=== PATIENT | female | born 1930 | race Caucasian/White ===

== ENCOUNTER 2016-09-21 17:12 | Emergency (ER) | payer OTHER ==
[2016-09-21 17:26] VITALS: TEMP 98.9; BMI 21.1
--- NOTE | 2016-09-21 17:31 | PDOC ---
History of Present Illness - General History Source: Patient Exam Limitations: No Limitations - History of Present Illness Initial Comments: 09/21/16 18:20 The patient is a 82 year old female, poor historian, with a significant past medical history of HTN and osteoporosis, who presents to the emergency department with AMS and headache. The patient was at a Urgent care for a routine PROSTHETIC DENTIST exam, when she was found to be going in and out of it and was unable answer questions. states, the patient was tremulous in the exam room however denied witnessing any seizure activity. The time of onset is unclear. When asked, the patient states she has been having a headache since everything began. Patient presents to the ED with her for further evaluation. She denies chest pain, headache or dizziness. She denies fever, chills, nausea, vomit, diarrhea or constipation. She denies dysuria, frequency, urgency or hematuria. Allergies: NKA Past surgical history: None Social history: None PCP: -- <Ivelisse Hodges - Last Filed: 09/21/16 19:01> <Gely Reid - Last Filed: 09/24/16 11:47> - General Chief Complaint: Altered Mental Status Stated Complaint: SYNCOPE Time Seen by Provider: 09/21/16 17:22 Past History <Ivelisse Hodges - Last Filed: 09/21/16 19:01> - Past Medical History HTN: Yes - Psycho/Social/Smoking Cessation Hx Anxiety: No Suicidal Ideation: No Smoking History: Never smoked Have you smoked in the past 12 months: No Information on smoking cessation initiated: No Hx Alcohol Use: No Drug/Substance Use Hx: No Substance Use Type: None <Gely Reid - Last Filed: 09/24/16 11:47> - Past Medical History Allergies/Adverse Reactions: Allergies Allergy/AdvReac Type Severity Reaction Status Date / Time No Known Allergies Allergy Verified 09/21/16 17:20 Home Medications: Ambulatory Orders Atorvastatin Ca [Lipitor] 20 mg PO HS 09/21/16 Esomeprazole Magnesium [Nexium 24Hr] 20 mg PO DAILY 09/21/16 Estradiol [Estrace] 0.1 mg PO WEEKLY 09/21/16 Ibandronate Sodium [Boniva] 150 mg PO MONTHLY 09/21/16 Review of Systems - Review of Systems Able to Perform ROS?: Yes Comments:: 09/21/16 18:21 GENERAL/CONSTITUTIONAL: No fever or chills. No weakness. HEAD, EYES, EARS, NOSE AND THROAT: No change in vision. No ear pain or discharge. No sore throat. CARDIOVASCULAR: No chest pain or shortness of breath. RESPIRATORY: No cough, wheezing, or hemoptysis. GASTROINTESTINAL: No nausea, vomiting, diarrhea or constipation. GENITOURINARY: No dysuria, frequency, or change in urination. MUSCULOSKELETAL: No joint or muscle swelling or pain. No neck or back pain. SKIN: No rash NEUROLOGIC:+ headache. No vertigo, loss of consciousness, or change in strength/ sensation. ENDOCRINE: No increased thirst. No abnormal weight change. HEMATOLOGIC/LYMPHATIC: No anemia, easy bleeding, or history of blood clots. ALLERGIC/IMMUNOLOGIC: No hives or skin allergy. <Ivelisse Hodges - Last Filed: 09/21/16 19:01> *Physical Exam - Vital Signs Last Vital Signs Temp Pulse Resp BP Pulse Ox 98.9 F 78 20 141/73 95 09/21/16 17:21 09/21/16 17:21 09/21/16 17:21 09/21/16 17:21 09/21/16 17:21 <Ivelisse Hodges - Last Filed: 09/21/16 19:01> - Vital Signs Last Vital Signs Temp Pulse Resp BP Pulse Ox 98.9 F 78 20 141/73 95 09/21/16 17:21 09/21/16 17:21 09/21/16 17:21 09/21/16 17:21 09/21/16 17:21 - Physical Exam Comments: GENERAL: Awake, alert, in no acute distress. Oriented to person and place, but appears confused, delirious. Intermittently falls asleep. HEAD: No signs of trauma EYES: PERRLA, EOMI, sclera anicteric, conjunctiva clear ENT: Auricles normal inspection, hearing grossly normal, nares patent, oropharynx clear without exudates. Moist mucosa NECK: Normal ROM, supple, no lymphadenopathy, JVD, or masses LUNGS: Breath sounds equal, clear to auscultation bilaterally. No wheezes, and no crackles HEART: Regular rate and rhythm, normal S1 and S2, no murmurs, rubs or gallops ABDOMEN: Soft, nontender, normoactive bowel sounds. No guarding, no rebound. No masses EXTREMITIES: Normal range of motion, no edema. No clubbing or cyanosis. No cords, erythema, or tenderness NEUROLOGICAL: Cranial nerves II through XII grossly intact. Normal speech, normal gait. Moving all extremities. SKIN: Warm, Dry, normal turgor, no rashes or lesions noted. <Gely Reid - Last Filed: 09/24/16 11:47> Heart Score/ECG Review - ECG Impressions Comment:: EKG read 17:27- NSR 79 bpm, no acute ST/T changes <Gely Reid - Last Filed: 09/24/16 11:47> ED Treatment Course - LABORATORY CBC & Chemistry Diagram: 09/21/16 17:51 09/21/16 17:51 <Ivelisse Hodges - Last Filed: 09/21/16 19:01> - LABORATORY CBC & Chemistry Diagram: 09/21/16 17:51 09/21/16 17:51 <Gely Reid - Last Filed: 09/24/16 11:47> Medical Decision Making - Medical Decision Making 09/21/16 19:[address] Official report pending. <Ivelisse Hodges - Last Filed: 09/21/16 19:01> - Medical Decision Making Received a call from Dr. Campuzano, who saw patient in her office as the change in mental status happened. Patient was there for routine f/u, became altered in the waiting room afterwards. She had not had any procedures, there was also no trauma. Etiology of the change in mental status is still unclear. No acute findings on CTH. Still awaiting the remainder of her workup for admission. <Gely Reid - Last Filed: 09/24/16 11:47> *DC/Admit/Observation/Transfer - Attestations Scribe Attestion: 09/21/16 18:21 Documentation prepared by Ivelisse Hodges, acting as medical technologist chemistry for Gely Reid MD <Ivelisse Hodges - Last Filed: 09/21/16 19:01> <Gely Reid - Last Filed: 09/24/16 11:47> Diagnosis at time of Disposition: Confusion Change in mental status Qualifiers: Altered mental status type: unspecified Qualified Code(s): R41.82 - Altered mental status, unspecified - Discharge Dispostion Disposition: HOME - Referrals Referrals: Chadd Oneil MD [Staff Physician] - - Patient Instructions Printed Discharge Instructions: DI for Altered Mental Status Additional Instructions: Please follow up with your doctor and get a referral to a neurologist or go the name referred to you here in the department
[2016-09-21 18:26] LABS: MCH 25.1 pg (25.7-33.7); MCHC 31.5 g/dl (32.0-36.0); MEAN CELL VOLUME 79.7 fl (80-96); MEAN PLT VOLUME 10.3 fl (7.5-11.1); PLATELET COUNT 94 K/MM3 (134-434); RDW 21.6 % (11.6-15.6); WHITE BLOOD COUNT 5.4 K/mm3 (4.0-10.0)
[2016-09-21 18:59] LABS: ALBUMIN 3.9 g/dl (3.4-5.0); ANION GAP 10 (8-16); CALCIUM 9.4 mg/dL (8.5-10.1); CO2 25 mmol/L (21-32); CREATININE 0.5 mg/dL (0.55-1.02); GLUCOSE,RANDOM 93 mg/dL (74-106); PLATELET ESTIMATE DECREASED (NORMAL); SGOT/AST 19 U/L (15-37); SGPT/ALT 20 U/L (12-78)
[2016-09-21 19:03] LABS: ALK PHOS 81 U/L (45-117); BILIRUBIN,TOTAL 0.9 mg/dL (0.2-1.0); TROPONIN I < 0.02 ng/ml (0.00-0.05)
[2016-09-21 20:02] LABS: URINE APPEARANCE CLEAR; URINE BILIRUBIN NEGATIVE (NEGATIVE); URINE COLOR YELLOW; URINE GLUCOSE (UA) NEGATIVE (NEGATIVE); URINE KETONE NEGATIVE (NEGATIVE); URINE LEUK ESTERASE NEGATIVE (NEGATIVE); URINE NITRITE NEGATIVE (NEGATIVE); URINE UROBILINOGEN NEGATIVE E.U./dl (0.2-1.0)
[2016-09-21 20:10] LABS: URINE BLOOD 1+ (NEGATIVE); URINE PROTEIN 1+ (NEGATIVE)
[2016-09-21 20:46] LABS: URINE MUCUS MODERATE; URINE RBC 45 /hpf (0-3); URINE WBC 3 /hpf (3-5)
--- NOTE | 2016-09-21 21:00 | PDOC ---
*Physical Exam - Vital Signs Last Vital Signs Temp Pulse Resp BP Pulse Ox 98.9 F 78 20 141/73 95 09/21/16 17:21 09/21/16 17:21 09/21/16 17:21 09/21/16 17:21 09/21/16 17:21 ED Treatment Course - LABORATORY CBC & Chemistry Diagram: 09/21/16 17:51 09/21/16 17:51 - ADDITIONAL ORDERS Additional order review: Laboratory Results 09/21/16 09/21/16 19:43 17:51 Sodium 139 Potassium 4.0 Chloride 104 Carbon Dioxide 25 Anion Gap 10 BUN 17 Creatinine 0.5 L Creat Clearance w eGFR > 60 Random Glucose 93 Calcium 9.4 Total Bilirubin 0.9 AST 19 ALT 20 Alkaline Phosphatase 81 Creatine Kinase 53 Troponin I < 0.02 Total Protein 7.0 Albumin 3.9 Urine Color Yellow Urine Appearance Clear Urine pH 5.0 Urine Protein 1+ H Urine Glucose (UA) Negative Urine Ketones Negative Urine Blood 1+ H Urine Nitrite Negative Urine Bilirubin Negative Urine Urobilinogen Negative Ur Leukocyte Esterase Negative Urine RBC 45 Urine WBC 3 Ur Epithelial Cells Rare Urine Mucus Moderate 09/21/16 17:51 RBC 4.66 MCV 79.7 L MCHC 31.5 L RDW 21.6 H MPV 10.3 Neutrophils % 56.0 Lymphocytes % 31.0 Monocytes % 12.0 H *DC/Admit/Observation/Transfer Diagnosis at time of Disposition: Confusion Altered mental status Qualifiers: Altered mental status type: unspecified Qualified Code(s): R41.82 - Altered mental status, unspecified - Discharge Dispostion Disposition: HOME Condition at time of disposition: Improved Admit: No - Referrals Referrals: Chadd Oneil MD [Staff Physician] - - Patient Instructions Printed Discharge Instructions: DI for Altered Mental Status Additional Instructions: Please follow up with your doctor and get a referral to a neurologist or go the name referred to you here in the department
[2016-09-21 21:11] VITALS: BP 170/77; PULSE 84
--- NOTE | 2016-09-24 09:57 | EKG ---
Test Reason : Blood Pressure : / mmHG Vent. Rate : 079 BPM Atrial Rate : 079 BPM P-R Int : 178 ms QRS Dur : 076 ms QT Int : 370 ms P-R-T Axes : 064 -32 065 degrees QTc Int : 424 ms POOR DATA QUALITY, INTERPRETATION MAY BE ADVERSELY AFFECTED NORMAL SINUS RHYTHM LEFT AXIS DEVIATION SEPTAL INFARCT , AGE UNDETERMINED ABNORMAL ECG NO PREVIOUS ECGS AVAILABLE Confirmed by PANKAJ MENDOZA MD ([id number]) on 09/24/2016 9:57:13 AM Referred By: Confirmed By:PANKAJ MENDOZA MD
== END 2016-09-21 21:14 | disposition home or self-care (01) ==
LOC: JER 17:12 → EDBD 17:12 → JER 21:14
DX: F44.89 Other dissociative and conversion disorders (principal); R41.82 Altered mental status, unspecified; I10 Essential (primary) hypertension; M81.0 Age-related osteoporosis without current pathological fracture
CPT/HCPCS: 36415; 70450-TC; 71010-TC; 80053; 81003; 81015; 82550; 84484; 85025; 87086; 93005; 93010; 99282-25